=== PATIENT | female | born 1970 | race Caucasian/White ===

== ENCOUNTER 2018-06-19 11:20 | Emergency (ER) | payer OTHER ==
[~2018-06-19] VITALS: Ht 162.6 cm; Wt 66.7 kg
[2018-06-19] MEDS ORDERED: SYNTHROID50 MCG (11:39)
== END 2018-06-19 16:50 | disposition home or self-care (01) ==
LOC: ER 11:20 → CPU-OBS 11:33 → ER 11:33
DX: R07.89 Other chest pain (principal)
CPT/HCPCS: G0378; G0379; 93005

== ENCOUNTER → 2018-07-01 | Outpatient (CLI) | payer OTHER ==
[~2018-07-01] MED LIST: SYNTHROID50 MCG
== END | disposition home or self-care (01) ==
LOC: NUCLEAR 07:18
DX: I20.9 Angina pectoris, unspecified (principal); I25.10 Atherosclerotic heart disease of native coronary artery without angina pectoris; I25.2 Old myocardial infarction
CPT/HCPCS: 78452; 93017; A9500

== ENCOUNTER 2018-07-31 14:26 | Outpatient (CLI) | payer OTHER | END 2018-07-31 15:29 | disposition home or self-care (01) | LOC: LAB 14:26 | DX: J11.1 Influenza due to unidentified influenza virus with other respiratory manifestations (principal); J11.89 Influenza due to unidentified influenza virus with other manifestations ==